=== PATIENT | female | born 1955 | race Caucasian/White ===

== ENCOUNTER 2018-02-22 12:14 | Emergency (ER) | payer BC ==
[~2018-02-22] VITALS: Ht 160 cm; Wt 82.6 kg
[2018-02-22 12:19] VITALS: TEMP 36.8; Ht 160 cm; Wt 82.6 kg
[2018-02-22] MEDS ORDERED: LEVO100T7 PO (12:32)
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
--- NOTE | 2018-02-22 14:04 | DIAGNOSTIC IMAGING REPORT ---
CERVICAL SPINE W/O CT DOSE: 495.81 mGycm CLINICAL HISTORY: 62 years-old Female with RT SIDE NECK PAIN, RADICULAR WITH NUMBNESS IN 4TH/5TH FINGERS. Acute right-sided neck pain with radiation into the right upper extremity COMPARISON: None. TECHNIQUE: Multiple axial CT images of the cervical spine were obtained without contrast. A dose lowering technique was utilized adhering to the principles of ALARA. FINDINGS: No acute fracture or subluxation. Straightening of the normal cervical lordosis. Mild intervertebral disc space narrowing at C5-C6 with mild to moderate disc space narrowing at C6-C7. Small posterior disc osteophyte complex relation are also noted at these levels. Mild multilevel facet arthrosis with mild multilevel uncovertebral spurring. Evaluation of the central canal and neuroforamina is better assessed by MRI. At C4-C5, there is mild right foraminal narrowing secondary to uncovertebral spurring and mild facet arthrosis. The left foramen and central canal at this level appear patent. At C6-C7, there is mild bilateral foraminal narrowing secondary to posterior disc osteophyte complex formation and mild facet arthrosis. No definite high-grade central canal or foraminal narrowing. No prevertebral soft tissue swelling. Mastoid air cells are clear. Soft tissues of the neck are unremarkable. Imaged lung apices appear clear. IMPRESSION: 1. No acute cervical spine fracture or subluxation. 2. Predominately mild degenerative changes as detailed above without definite high-grade central canal or foraminal narrowing identified. If symptoms persist, a follow-up MRI of the cervical spine may be considered. 3. Mild straightening of the normal cervical lordosis may be secondary to positioning or paraspinal muscle spasm. The above report was generated using voice recognition software. It may contain grammatical, syntax or spelling errors. Electronically signed by: Srikanth Izquierdo M.D. 02/22/2018 2:03 PM Dictated Date/Time: 02/22/2018 1:53 PM
[2018-02-22] MEDS ORDERED: METH4PAK PO (14:35)
[2018-02-22 15:01] VITALS: BP 158/98; PULSE 74; O2SAT 98
== END 2018-02-22 15:19 | disposition home or self-care (01) ==
LOC: C.EDB 12:15 → C.EDD 15:19
DX: M54.12 Radiculopathy, cervical region (principal); E03.9 Hypothyroidism, unspecified; Z79.899 Other long term (current) drug therapy; V89.2XXD Person injured in unspecified motor-vehicle accident, traffic, subsequent encounter